=== PATIENT | male | born 1975 | race Caucasian/White ===

== ENCOUNTER 2016-11-20 11:13 | Emergency (ER) | payer OTHER ==
[2016-11-20 11:15] VITALS: BP 175/106; PULSE 88; RESP 20; TEMP 98.3; O2SAT 97
--- NOTE | 2016-11-20 11:23 | PD ---
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 Feels slightly SOB. Subjective fever. Denies change in vision. +clear eye drainage. Patient seen in triage. VS reviewed. Patient awaiting bed placement. Data Data Last Documented VS Vital Signs Date Time Temp Pulse Resp B/P Pulse Ox O2 Delivery O2 Flow Rate FiO2 11/20/16 11:15 98.3 88 20 175/106 97 Room Air MDM Supervised Visit with TAMICA: Queenie Doyle Nov 20, 2016 11:23
--- NOTE | 2016-11-20 14:34 | PD ---
HPI Chief Complaint: Allergic/Adverse Reaction Time Seen by Provider: 14:11 Travel History International Travel<30 days: No Contact w/Intl Traveler<30days: No Traveled to known affect area: No History of Present Illness HPI 41yo M with no PMH presents to the ED with c/o multiple symptoms that may be related to chemical exposure from his uniform. 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 Rash is on dorsal aspect of hands and is not itchy or painful. Pt also noticed left eyelid swelling and redness that started 2 days ago. States it is a little tender. No eye pain or pain with eye movement. No changes in vision. States he has had this before but never seen anyone about it. Denies any fever, throat or tongue swelling, chest pain, sob, n/v, abdominal pain, focal weakness or numbness. Pt does feel like he has congestion but not really sob. Pt states there is a list of chemicals that they sprayed the uniforms with and 2000 employees have had similar symptoms. States last time he wore the uniform was in September but it may be airborne and he was sitting next to someone wearing it. PFSH Past Medical History Medical History: Denies Significant Hx Past Surgical History Surgical History: No Previous Surgery Social History Alcohol Use: No Tobacco Use: No Substance Use: No Allergies-Medications (Allergen,Severity, Reaction): Coded Allergies: Augmentin (Verified Allergy, Unknown, 11/20/16) Reported Meds & Prescriptions Reported Meds & Active Scripts Active Clindamycin (Clindamycin HCl) 300 Mg Cap 300 Mg PO TID 7 Days Ala-Higinio Topical (Hydrocortisone (Topical)) 1% Cream 1 Applic TOPICAL BID 5 Days Review of Systems Except as stated in HPI: all other systems reviewed are Neg Physical Exam Narrative GENERAL: 41yo M not in distress. SKIN: Diffuse skin colored papules in dorsum of right and left hand. HEAD: Atraumatic. Normocephalic. EYES: +Mild swelling and erythema in left eyelid. No fluctuance. EOMI. Mild swelling in right eyelid. Pupils equal and round. No scleral icterus. No injection or drainage. ENT: No nasal bleeding or discharge. Mucous membranes pink and moist. NECK: Trachea midline. No JVD. CARDIOVASCULAR: Regular rate and rhythm. No murmur appreciated. RESPIRATORY: No accessory muscle use. Clear to auscultation. Breath sounds equal bilaterally. GASTROINTESTINAL: Abdomen soft, non-tender, nondistended. No rebound tenderness or guarding. MUSCULOSKELETAL: No obvious deformities. No clubbing. No cyanosis. No edema. NEUROLOGICAL: Awake and alert. No obvious cranial nerve deficits. Motor grossly within normal limits. Normal speech. PSYCHIATRIC: Appropriate mood and affect; insight and judgment normal. Data Data Last Documented VS Vital Signs Date Time Temp Pulse Resp B/P Pulse Ox O2 Delivery O2 Flow Rate FiO2 11/20/16 11:15 98.3 88 20 175/106 97 Room Air Orders Chest, Single Ap (11/20/16 ) Call Poison Control (11/20/16 14:25) MDM Medical Decision Making Medical Screen Exam Complete: Yes Emergency Medical Condition: Yes Interpretation(s) Last Impressions Chest X-Ray 11/20/16 0000 Signed Impressions: Service Date/Time: Friday, November 20, 2016 15:26 - CONCLUSION: 1. No acute cardiopulmonary disease. Jordan Vasquez MD Differential Diagnosis Chemical exposure vs. allergic reaction vs. contact dermatitis vs. early cellulitis Narrative Course 41yo M with possible reaction to chemicals on uniform. Poison control was contacted and sales and service officer was notified regarding the list of possible chemicals he may be exposed to. Recommends conservative management and rash is likely contact dermatitis and to use hydrocortisone cream as needed. Pt denies any sob or chest pain but feels maybe a little congested and was worried because a colleague had chemical pneumonitis and got really sick. CXR negative. Pt is well appearing and saturating at 97% on RA. Left eyelid swelling may be early cellulitis versus allergic reaction, will cover with clindamycin. Pt has no itching at all. Diagnosis Primary Impression: Contact dermatitis Qualified Code: L25.9 - Contact dermatitis, unspecified contact dermatitis type, unspecified trigger Patient Instructions: General Instructions Departure Forms: Tests/Procedures Additional Instructions: Please follow up with your primary care physician in 1-2 days. Return to the ED if symptoms worsen. Med/Other Pt SpecificInfo: Prescription(s) given Scripts Clindamycin 300 Mg [id number] Mg PO TID 7 Days Ref 0 Prov:NolanDania DO 11/20/16 Hydrocortisone (Topical) (Ala-Higinio Topical)1% Cream1 Applic TOPICAL BID 5 Days Ref 0 Prov:Nolan,Dania DO 11/20/16 Disposition: 01 DISCHARGE HOME Condition: Stable Dania Nolan DO Nov 20, 2016 14:34
--- NOTE | 2016-11-20 16:37 | RADRPT ---
EXAM DATE/TIME: 11/20/2016 15:26 [facility] COMPARISON: No previous studies available for comparison. INDICATIONS : Short of breath. Patient having an allergic reaction. MEDICAL HISTORY : None. SURGICAL HISTORY : None. ENCOUNTER: Initial ACUITY: 1 week PAIN SCORE: 2/10 LOCATION: Bilateral chest FINDINGS: A single view of the chest demonstrates the lungs to be symmetrically aerated without evidence of mas s, infiltrate or effusion. The cardiomediastinal contours are unremarkable. Osseous structures are intact. CONCLUSION: 1. No acute cardiopulmonary disease. Jordan Vasquez MD on November 20, 2016 at 16:35 Board Certified Radiologist. This report was verified electronically.
[2016-11-20] MEDS ORDERED: ALA1CRE2 TOPICAL (17:00)
[2016-11-20] MEDS ORDERED: CEPH-460 PO (17:16)
[2016-11-20] MEDS ORDERED: CLIN1CAP6 PO (17:20)
== END 2016-11-20 17:34 | disposition home or self-care (01) ==
LOC: NEPD 11:13
DX: L25.9 Unspecified contact dermatitis, unspecified cause (principal); Z88.0 Allergy status to penicillin
CPT/HCPCS: 71010; 99283